=== PATIENT | male | born 1945 | race Caucasian/White ===

== ENCOUNTER 2017-05-13 14:01 | Inpatient (IN) ==
--- NOTE | 2017-05-13 14:31 | Emergency Department Note ---
Disposition Clinical Impression: Chest pain Qualifiers: Chest pain type: unspecified Qualified Code(s): R07.9 - Chest pain, unspecified Disposition: Admitted As Inpatient Condition: Fair [facility] Care Provider[facility] - Forms: ED Satisfaction Letter Time of Disposition: 16:13 Chest Pain HPI - General Chief Complaint: ED Chest Pain Stated Complaint: CP Time Seen by Provider: 05/13/17 14:04 Source: patient Mode of arrival: EMS Limitations: no limitations Vital Signs Reviewed: Yes Nursing Notes Reviewed: Yes - History of Present Illness HPI Narrative: 72-year-old male who presents with chest pain about 3 AM. States is similar to what he had prior to requiring 4 stents about 4 years ago. She was seen at the [place] he actually had given nitroglycerin with improvement troponin 2 is negative they were seen by cardiology there was concerned about unstable angina. Pt complaint: chest pain Onset (ago): Just [employer] Duration: constant Onset: during rest Pain Location: substernal, left chest Severity scale (1-10): 2 Quality: tightness, aching Improves with: nothing Worsens with: nothing Associated symptoms: Reports: nausea Treatments prior to arrival chest pain: none - Related Data Home Medications Medication Instructions Recorded Confirmed Cholecalciferol (Vitamin D3) 1,000 unit PO DAILY 10/13/15 10/13/15 [Vitamin D] Docusate [Colace] 100 mg PO BID PRN 10/13/15 10/13/15 Gabapentin [Neurontin] 300 mg PO TID 10/13/15 10/13/15 GlipiZIDE [Glucotrol] 10 mg PO DAILY 10/13/15 10/13/15 Lisinopril [Zestril] 10 mg PO DAILY 10/13/15 10/13/15 Metformin [Glucophage] 1,000 mg PO BID 10/13/15 10/13/15 Metoprolol XL (24 HR) Succ [Toprol 12.5 mg PO DAILY 10/13/15 10/13/15 XL] Prasugrel [Effient] 10 mg PO DAILY 10/13/15 10/13/15 Simvastatin [Zocor] 20 mg PO HS 10/13/15 10/13/15 Previous Rx's Medication Instructions Recorded OxyCODONE/APAP 5/325 [Percocet 1 each PO Q4HR PRN #30 tablet 10/13/15 5/325] Phenazopyridine HCl [Pyridium] 200 mg PO TIDAC #12 tab 10/13/15 Naproxen [Naprosyn] 500 mg PO BID #10 tablet 10/21/15 Ondansetron ODT [Zofran ODT] 4 mg SL Q4HR PRN #10 tab.rapdis 10/21/15 OxyCODONE/APAP 5/325 [Percocet 1 each PO Q6HR PRN #14 tablet 10/21/15 5/325 MG] Allergies Allergy/AdvReac Type Severity Reaction Status Date / Time No Known Allergies Allergy Verified 10/21/15 02:31 Constitutional: Denies: fever, chills, weakness, weight change Eyes: Denies: eye pain, eye discharge, vision change ENT ED: Denies: ear pain, throat pain, dental pain, hearing loss, epistaxis, congestion, dysphagia Cardiovascular: Reports: chest pain. Denies: palpitations, dyspnea on exertion , edema, syncope Respiratory: Denies: cough, dyspnea, wheezes, hemoptysis, stridor Gastrointestinal: Denies: abdominal pain, nausea, vomiting, diarrhea, constipation, hematemesis, melena, hematochezia Genitourinary: Denies: urgency, dysuria, frequency, hematuria Musculoskeletal: Denies: back pain, neck pain, arthralgia, myalgia Integumentary: Denies: rash, abrasion, lesions Neurological: Denies: headache, weakness, numbness, paresthesias, confusion, abnormal gait, vertigo Psychiatric: Denies: anxiety, depression, suicidal thoughts, homicidal thoughts , auditory hallucinations, visual hallucinations Endocrine: Denies: fatigue Hematological/Lymphatic: Denies: easy bleeding, easy bruising Allergic/Immunologic: Denies: facial swelling, urticaria Chest Pain PMH - Past Medical History Medical history: Reports: cancer, coronary artery disease, diabetes, hyperlipidemia, hypertension, kidney stones, myocardial infarction, other Surgical history: Reports: angioplasty/stent, appendectomy, other Psychiatric history: Reports: no psych history - Social History Smoking Status: Former smoker Alcohol use: Reports: occasionally Drug use: Reports: none Physical Exam - General Limitations: no limitations General appearance: alert, in no apparent distress Course - Reevaluation(s) Reevaluation #1: Troponin I 0.00 at 13:14, troponin 0. 00 at 08:10, AST 17, 8 LT 25, total bilirubin 0.5, ALP 81, calcium 9.5, total protein 7.5, albumin 3.8, mag 2.0, sodium 137, potassium 4.5, chloride 99, CO2 32, glucose 175, bun 14, creatinine 0.97, CBC 7.9, RBC 4.82, Hgb 14, HCT 43.5, MCV 90.2, MCH 29, MCHC 32, platelets 208, neutrophils 64.2, lymphocytes 26.3, monocytes 7.3, eosinophils 1.9, total 0.3, Time: 14:43 Reevaluation #2: 72-year-old with chest pain and was seen at the [place]. Patient had troponins done at the [place] that were negative, seen by cardiology who felt he had unstable angina. Will be admitted for further evaluation treatment. - Consultations Consultation #1: Discussed with Karma Francois, admit Time: 16:13 Vital Signs Temperature 97.9 F 05/13/17 14:02 Pulse Rate 67 05/13/17 14:02 Respiratory Rate 18 05/13/17 14:02 Blood Pressure 131/78 05/13/17 14:02 O2 Sat by Pulse Oximetry 97 05/13/17 14:02 Temperature 97.9 F 05/13/17 14:02 Pulse Rate 74 05/13/17 16:02 Respiratory Rate 18 05/13/17 16:02 Blood Pressure 119/80 05/13/17 16:02 O2 Sat by Pulse Oximetry 95 05/13/17 16:02 Oxygen Delivery Oxygen Delivery Nasal Cannula Heart Score - Score History: Moderately Suspicious EKG: Non Specific repolarisation Disturbance Age: Greater than 65 Risk Factors: Equal/Greater than 3 risk factor or history of atherosclerotic disease Troponin: 1-3x normal limit HEART Score Total: 7
[2017-05-13] MEDS ORDERED: Naloxone 0.4 MG/ML INJ IVP PRN (17:53)
[2017-05-13] MEDS ORDERED: Acetaminophen 325 MG TABLET PO PRN (17:53)
[2017-05-13] MEDS ORDERED: Dextrose Gel 15 GM PO PRN ×2 (17:57)
[2017-05-13] MEDS ORDERED: D5% in Water 1,000 ML IVC PRN (17:57)
[2017-05-13] MEDS ORDERED: *HR* Dextrose 50 % in Water (Syg) 50 ML SYRINGE IVP PRN (17:57)
[2017-05-13] MEDS ORDERED: Nitroglycerin 0.4 MG TAB.SUBL SL PRN (17:58)
--- NOTE | 2017-05-13 18:03 | Internal Med History&Physical ---
<Cedrick Langford - Last Filed: 05/13/17 20:22> Date of Encounter: 05/13/17 Internal Medicine - H&P: HPI History of present illness: Mr. Villegas is a 72 year old male Internal Medicine - H&P: Meds Cholecalciferol (Vitamin D3) [Vitamin D] 2,000 unit PO DAILY 10/13/15 [History] Docusate [Colace] 100 mg PO BID PRN 10/13/15 [History] Gabapentin [Neurontin] 300 mg PO BID 10/13/15 [History] Metformin [Glucophage] 1,000 mg PO BID 10/13/15 [History] Metoprolol XL (24 HR) Succ [Toprol XL] 37.5 mg PO DAILY 10/13/15 [History] Prasugrel [Effient] 10 mg PO DAILY 10/13/15 [History] Simvastatin [Zocor] 20 mg PO HS 10/13/15 [History] Cetirizine HCl [Zyrtec] 10 mg PO DAILY 05/13/17 [History] Fluticasone Propionate Nasal [Flonase] 50 mcg NS DAILY 05/13/17 [History] Hydrocortisone 2.5% CREAM [Cortaid] 1 appl RC BID PRN 05/13/17 [History] Isosorbide MONOnitrate (24 HR) [Imdur] 30 mg PO DAILY 05/13/17 [History] Ketoconazole 2% CRM [Nizoral Cream] 1 appl TP BID 05/13/17 [History] Lidocaine 4% CRM (LMX) [Lmx 4] 1 appl TP TID 05/13/17 [History] Lisinopril [Zestril] 5 mg PO DAILY 05/13/17 [History] Magnesium Oxide [Mag-Ox] 600 mg PO HS 05/13/17 [History] Multivitamin-Min/Iron/FA/Vit K [Multi-Day Plus Minerals Tablet] 1 each PO DAILY 05/13/17 [History] Naproxen Sodium [Aleve] 220 mg PO Q12H 05/13/17 [History] Nitroglycerin [Nitrostat] 0.4 mg SL Q5M PRN 05/13/17 [History] glipiZIDE [Glipizide] 10 mg PO BID 05/13/17 [History] metFORMIN [Glucophage] 500 mg PO 1200 05/13/17 [History] Allergies No Known Allergies Allergy (Verified 10/21/15 02:31) All Systems PM: A 10-system review of systems was performed and is negative for pertinent findings except as documented above in the HPI. - Constitutional Vitals: Temp Pulse Resp BP Pulse Ox 97.9 F 68 15 118/75 93 05/13/17 19:43 05/13/17 19:43 05/13/17 19:43 05/13/17 19:43 05/13/17 19:43 Internal Med - H&P Results - Labs Labs: Cardiac Enzymes 05/13/17 Range/Units 18:11 Troponin I 0.00 (0-0.03) ng/mL - Attending Attestation I examined this patient and my medical decision-making was reviewed with the Advanced Practice Nurse. I agree with the documented findings, disposition and treatment plan as described except to the extent set forth below. Patient was transferred from the [place] for evaluation of chest pain. He reports that he is now chest pain-free. On exam he is in no acute distress. Heart is regular with normal S1 and S2 and no murmurs. Lungs are clear to auscultation bilaterally. EKG was personally reviewed shows normal sinus rhythm [address] or T- wave changes. Plan: We will place the patient on telemetry. Trend troponin. Consult cardiology in the morning. Nothing by mouth after midnight <Agatha Fulton - Last Filed: 05/13/17 21:09> Date of Encounter: 05/13/17 Time of Encounter: 18:02 Assessment and Plan (1) Chest pain Current visit: Yes Status: Acute 1 patient was awakened with midsternalhest pain radiating to left arm it was relieved with nitroglycerin he does have a past history of coronary artery disease hypertension hyperlipidemia. Troponins are 0 continue to cycle 2 continuous cardiac monitoring 3 continue with aspirin and Plavix statin we will hold beta tiyn in the morning , for possible cardiac stress and resume once completed 4 we will consult cardiology 5 in p.m. after midnight for any further testing 6 nitroglycerin as needed for chest pain Qualifiers: Chest pain type: unspecified Qualified Code(s): R07.9 - Chest pain, unspecified (2) Hypertension Current visit: Yes Status: Acute 1 we will continue with home medication Qualifiers: Hypertension type: essential hypertension Qualified Code(s): I10 - Essential (primary) hypertension (3) Diabetes mellitus Current visit: Yes Status: Acute 1 hold oral antidiabetic Accu-Cheks before meals at bedtime sliding scale insulin Qualifiers: Diabetes mellitus type: type 2 Diabetes mellitus complication status: without complication Diabetes mellitus longterm insulin use: without longterm use Qualified Code(s): E11.9 - Type 2 diabetes mellitus without complications (4) DVT prophylaxis Current visit: Yes Status: Acute 1 [facility] Internal Medicine - H&P: HPI Chief complaint: CP Admitted From: Hospital to Hospital Transfer Plans for Post Hospital Care: Home History of present illness: Mr. Villegas is a 72 year old male hospital history of coronary artery disease with 4 stents placed proximal 4 years ago diabetes hyperlipidemia hypertension. According to patient he was awakened approximately 3 AM with midsternal chest pressure which she states was squeezing 10/10 pain radiated to his left arm he did become short of breath and nauseated. He did take a nitroglycerin which relieved his pain. He went back to sleep an hour later he was awakened again with the same symptoms again he took nitroglycerin which reduced his pain. He reported to the [place] [facility] for [place]. The [place] he was given another nitroglycerin which completely relieved his pain first 2 sets of troponins were negative at that [place] EKG was with no ST-T wave abnormalities. Due to the patient 's past cardiac history and unavailable cardiology at the [place] the patient was transferred to [place] for further workup and evaluation. Presently patient denies any chest pain he is sinus rhythm on monitor lung sounds are clear heart sounds S1 and S2 regular with no rubs clicks gallops or murmurs noted no lower extremity edema. Prior to this incident he was doing well and in his normal state of health. He states his last cardiac stress test was 4 years ago and during the stress test he states he had a "heart attack"and had 4 stents placed. Presently patient is hemodynamically stable I reviewed this case with who agrees with the plan. Past Med Surg Social Fam HX - Past Medical History Medical history: coronary artery disease, diabetes, hyperlipidemia, hypertension , kidney stones, myocardial infarction, other Psychiatric history: no psych history - Past Surgical History Surgical History: angioplasty/stent, appendectomy, other - Social History Smoking Status: Former smoker Smokeless Tobacco Status: No Alcohol use: occasionally Drug use: none - Additional Family History Additional family history: History reviewed and noncontributory All Systems PM: A 10-system review of systems was performed and is negative for pertinent findings except as documented above in the HPI. - Constitutional Constitutional: no chills, no fever(s), no night sweats - EENT Eyes: no change in vision, no discharge, no pain, no photophobia Nose, mouth and throat: no dysphagia, no nasal discharge, no neck pain, no sore throat - Cardiovascular Cardiovascular ROS IM: no chest pain, no diaphoresis, no dyspnea, no lightheadedness, no palpitations, no syncope - Respiratory Respiratory: no cough, no dyspnea, no wheezing, no excessive phlegm production - Gastrointestinal Gastrointestinal: no abdominal pain, no diarrhea, no hematemesis, no hematochezia, no melena, no nausea, no vomiting - Musculoskeletal Musculoskeletal ROS IM: no numbness, no tingling - Integumentary Integumentary IM: no rash, no unusual bruising - Neurological Neurological ROS: no confusion, no convulsions, no focal weakness, no numbness, no tingling, no tremor(s) - Hematologic/Lymphatic Hematologic/Lymphatic: no easy bruising - Constitutional Vitals: Temp Pulse Resp BP Pulse Ox 97.9 F 82 14 91/68 91 05/13/17 17:32 05/13/17 17:32 05/13/17 17:32 05/13/17 17:32 05/13/17 17:32 General appearance: Present: A&O X 3, answers questions appropriately - Head Head exam: Present: atraumatic, normocephalic - Eye Eye exam: Present: PERRL, conjuntiva pink, sclera anicteric Pupils: Present: PERRL - Neck Neck exam general surgery: Present: supple, trachea midline. Absent: lymphadenopathy - Respiratory Respiratory exam: Present: CTAB. Absent: accessory muscle use, rales, rhonchi, wheezes - Cardiovascular Cardiovascular exam: Present: RRR, +S1, +S2. Absent: diastolic murmur, gallop, rubs, systolic murmur - GI/Abdominal GI/Abdominal exam: Present: normal bowel sounds, soft, no peritoneal signs. Absent: distended, tenderness - Extremities Exam Extremities exam: Present: warm, radial pulses palpable and symetrical. Absent : calf tenderness, cyanotic, pedal edema - Neurological Exam Neurological exam: Present: CN II-XII intact, oriented X3, no focal deficits. Absent: pronater drift, facial droop, speech deficit - Skin Skin exam: Present: dry, intact Internal Med - H&P Results - Labs Labs: Chemistry sodium 137 potassium 4.5 chloride 99, and Axid 32 BUN 14 creatinine 0.97 glucose 175 CBC WBC 7.9 hemoglobin 14 hematocrit 43.5 platelets 208 - EKG Data EKG shows normal: sinus rhythm - EKG Data Prior EKG available for review: no
[2017-05-13] MEDS ORDERED: Insulin LISPRO 300 UNITS/3 ML VIAL SQ SCH (21:00)
[2017-05-13] MEDS: Gabapentin 300 MG CAPSULE PO SCH (21:07)
[2017-05-14 05:08] LABS: Basophils % 0.5 %; Eosinophils # 0.2 K/mcL (0.0-0.6); Eosinophils % 2.3 %; Hematocrit 42.6 % (37.5-50.1); Hemoglobin 13.8 g/dL (12.9-16.9); Immature Granulocytes % 0.2 % (0-4); Lymphocytes # 1.7 K/mcL (0.6-4.6); Lymphocytes % 26.4 %; Mean Corpuscular HGB Conc 32.4 g/dL (31.6-35.5); Mean Corpuscular Hemoglobin 28.1 pg (28.0-33.3); Mean Corpuscular Volume 86.8 fL (83.0-100.0); Mean Platelet Volume 8.9 fL (9.4-12.4); Monocytes # 0.6 K/mcL (0.0-1.3); Monocytes % 9.6 %; Platelet Count 173 K/mcL (140-400); Red Blood Count 4.91 M/mcL (4.19-5.50); Red Cell Distribution Width 13.7 % (11.5-14.5)
[2017-05-14 05:24] LABS: BUN/Creatinine Ratio 16 (6-26); Blood Urea Nitrogen 13 mg/dL (8-26); Calcium 9.4 mg/dL (8.6-10.8); Carbon Dioxide 24 mEq/L (19-29); Chloride 104 mEq/L (98-109); Glucose 185 mg/dL (70-99); Magnesium 1.6 mg/dL (1.6-2.6); Osmolality,Calculated 289 (280-300); Potassium 4.6 mEq/L (3.5-4.5); Sodium 137 mEq/L (136-145); eGFR For African Americans > 60 (> 60); eGFR For Non-African Americans > 60 (> 60)
[2017-05-14] MEDS ORDERED: *HR* Enoxaparin 40 MG/0.4 ML SYRINGE SQ SCH (07:00)
[2017-05-14 08:11] VITALS: BP 118/74
[2017-05-14] MEDS ORDERED: Multivit/Ca/Min/Fe/FA 1 TAB TABLET PO SCH (09:00)
[2017-05-14] MEDS ORDERED: Loratadine 10 MG TABLET PO SCH (09:00)
[2017-05-14] MEDS ORDERED: Cholecalciferol (D-3) 1,000 UNIT TABLET PO SCH (09:00)
[2017-05-14] MEDS ORDERED: Isosorbide MONOnitrate (24 HR) 30 MG TAB.ER.24H PO SCH (09:00)
[2017-05-14] MEDS: Insulin LISPRO 300 UNITS/3 ML VIAL SQ SCH ×2 (09:31→14:00)
--- NOTE | 2017-05-14 09:43 | Cardiology Consult Note ---
Date of Encounter: 05/14/17 Time of Encounter: 09:20 Assessment and Plan (1) Chest pain Current Visit: Yes Status: Acute Presents with typical chest pain symptoms; relieved with NTG tabs. Trop[facility] negative [facility] ([facility] negative [facility]). No ischemic ECG changes. Pain free upon exam. Given symptoms and hx of CAD, recommend proceeding with Pharmacologic nuclear stress test--patient is agreeable. Further recommendations to follow. Qualifiers: Chest pain type: chest pain due to myocardial ischemia Ischemic chest pain type: stable angina pectoris Qualified Code(s): I20.8 - Other forms of angina pectoris (2) CAD (coronary artery disease) Current Visit: Yes Status: Chronic Hx of CAD s/p 4 stents. Most recent PCI 01/2012. Asa, statin, betablocker, and effient. Plan as above. Qualifiers: Coronary Disease-Associated Artery/Lesion type: [place] artery [place] vs. transplanted heart: [place] heart Associated angina: with stable angina Qualified Code(s): I25.118 - Atherosclerotic heart disease of [place] coronary artery with other forms of angina pectoris (3) Hypertension Current Visit: Yes Status: Chronic Controlled, continue current CV medications. Qualifiers: Hypertension type: essential hypertension Qualified Code(s): I10 - Essential (primary) hypertension Discussion w patient/family: The assessment and plan as outlined above was discussed with the patient and/or family members who expressed understanding and agreement. All questions were answered. Thank you for involving us in the care of your patient. Please call with any questions. The patient will be discussed and reviewed with Dr. Frank Vaca; changes to be made accordingly. History of Present Illness Consult date: 05/14/17 Requesting physician: Cedrick Langford Consult reason: Chest pain Chief complaint: Chest pain History of present illness: Mr. Villegas is a 72 year old male with PMH significant for CAD s/p PCI, DMII, neuropathy, and HTN who presented to the [place] with 1-2 day history of substernal chest discomfort with radiation down left arm. He reports intermittent left-arm tingling for the past week. Symptoms worsen with exertion/stress and improve with rest and NTG tabs. Upon arrival to [place], initial troponin was negative. No acute ischemic ECG changes were noted. He was the transferred to [facility] for further evaluation. Prior CV testing: [facility] 02/18/12: Patent pre-existing stent in the proximal to mid left anterior descending artery. Successful PTCA of the patent pre-existing stent in the proximal to mid first obtuse marginal artey, PCI of the 70% stenosis in the mid right coronary artery & 70% stenosis in the proximal right coronary artery. Pharmacologic nuclear 02/03/13: Perfusion imaging was negative for ischemia or infarct, Pharmacologic ECG was negative for ischemia at the level of heart rate achieved, no chest pain with stress, Normal hemodynamic response TTE 02/03/13: LVEF 60-65%, mild diastolic dysfunction of the left ventricle, Normal right ventricular size and function, No significant valvular dysfunction identified, There is no pulmonary hypertension, All wall segments showed normal motion. Past Med Surg Social Fam HX - Past Medical History Attestation: Yes The following information was validated with the patient. Source: patient, old records reviewed Medical history: coronary artery disease, diabetes, hyperlipidemia, hypertension , kidney stones, myocardial infarction Psychiatric history: no psych history - Past Surgical History Surgical History: angioplasty/stent, appendectomy, other - Social History Smoking Status: Former smoker Smokeless Tobacco Status: No Alcohol use: occasionally Drug use: none Medications and Allergies Cholecalciferol (Vitamin D3) [Vitamin D] 2,000 unit PO DAILY 10/13/15 [History] Docusate [Colace] 100 mg PO BID PRN 10/13/15 [History] Gabapentin [Neurontin] 300 mg PO BID 10/13/15 [History] Metformin [Glucophage] 1,000 mg PO BID 10/13/15 [History] Metoprolol XL (24 HR) Succ [Toprol XL] 37.5 mg PO DAILY 10/13/15 [History] Prasugrel [Effient] 10 mg PO DAILY 10/13/15 [History] Simvastatin [Zocor] 20 mg PO HS 10/13/15 [History] Cetirizine HCl [Zyrtec] 10 mg PO DAILY 05/13/17 [History] Fluticasone Propionate Nasal [Flonase] 50 mcg NS DAILY 05/13/17 [History] Hydrocortisone 2.5% CREAM [Cortaid] 1 appl RC BID PRN 05/13/17 [History] Isosorbide MONOnitrate (24 HR) [Imdur] 30 mg PO DAILY 05/13/17 [History] Ketoconazole 2% CRM [Nizoral Cream] 1 appl TP BID 05/13/17 [History] Lidocaine 4% CRM (LMX) [Lmx 4] 1 appl TP TID 05/13/17 [History] Lisinopril [Zestril] 5 mg PO DAILY 05/13/17 [History] Magnesium Oxide [Mag-Ox] 600 mg PO HS 05/13/17 [History] Multivitamin-Min/Iron/FA/Vit K [Multi-Day Plus Minerals Tablet] 1 each PO DAILY 05/13/17 [History] Naproxen Sodium [Aleve] 220 mg PO Q12H 05/13/17 [History] Nitroglycerin [Nitrostat] 0.4 mg SL Q5M PRN 05/13/17 [History] glipiZIDE [Glipizide] 10 mg PO BID 05/13/17 [History] metFORMIN [Glucophage] 500 mg PO 1200 05/13/17 [History] Allergies No Known Allergies Allergy (Verified 10/21/15 02:31) All Systems Review: A 10-system review of systems was performed and is negative for pertinent findings except as documented above in the HPI. - Cardiovascular Cardiovascular: as per HPI Physical Examination Vital Signs, Last 4 Hours Temp Pulse Resp BP Pulse Ox 05/14/17 08:10 98.1 F 72 16 118/74 92 General: Conversant, No Apparent Distress HEENT: Atraumatic, Normocephaly, Mucus Membranes Moist Neck: No JVD, Normal carotid pulses Cardiac: Reg Rate and Rhythm, Normal S1 and S2, No Murmur Lungs: Normal Breath Sounds, No Wheeze, Rales, Rhonchi Neuro: Alert and responsive, No focal deficits noted Abdomen: Soft, Non-Tender Skin: No rashes noted on visualized skin Musculoskeletal: No Chest Wall Tenderness Extremities: No Clubbing, No Cyanosis, No Edema, Normal Pulses Results 05/14/17 04:33 05/14/17 04:33 Lab Results 05/13/17 05/14/17 05/14/17 18:11 04:33 04:33 WBC 6.6 Hgb 13.8 Hct 42.6 Plt Count 173 Sodium 137 Potassium 4.6 H Chloride 104 Carbon Dioxide 24 BUN 13 Creatinine 0.80 Glucose 185 H Calcium 9.4 Magnesium 1.6 Troponin I 0.00 05/14/17 08:34 WBC Hgb Hct Plt Count Sodium Potassium Chloride Carbon Dioxide BUN Creatinine Glucose Calcium Magnesium Troponin I 0.01 Active Medications Acetaminophen (Tylenol) 650 mg PO Q6HR PRN PRN Reason: Mild Pain (1-3) Stop: 11/12/17 17:54 Dextrose/Water (Dextrose 50% (Syg)) 25 ml IVP AD PRN PRN Reason: Hypoglycemia Stop: 11/12/17 17:58 Docusate Sodium (Colace) 100 mg PO BID PRN; Protocol PRN Reason: Constipation Stop: 11/12/17 17:59 Enoxaparin Sodium (Lovenox) 40 mg SQ 0700 BRANDO PRN Reason: Protocol Stop: 11/13/17 07:01 Last Admin: 05/14/17 06:15 Dose: 40 mg Gabapentin (Neurontin) 300 mg PO BID BRANDO Stop: 11/12/17 21:01 Last Admin: 05/13/17 21:07 Dose: 300 mg Dextrose (Dextrose 5%) 1,000 mls @ 100 mls/hr IVC .Q10H PRN PRN Reason: HYPOGLYCEMIA Stop: 11/12/17 17:58 Insulin Human Lispro (Humalog) 0 units SQ HS BRANDO PRN Reason: Protocol Stop: 11/12/17 21:01 Last Admin: 05/13/17 21:08 Dose: Not Given Insulin Human Lispro (Humalog) 0 units SQ TIDAC BRANDO PRN Reason: Protocol Stop: 11/13/17 07:31 Last Admin: 05/14/17 09:31 Dose: Not Given Isosorbide Mononitrate (Imdur) 30 mg PO DAILY [facility] Stop: 11/13/17 09:01 Lisinopril (Zestril) 5 mg PO DAILY BRANDO PRN Reason: Protocol Stop: 11/13/17 09:01 Loratadine (Claritin) 10 mg PO DAILY [facility] Stop: 11/13/17 09:01 Multivitamins/Calcium (Thera M Plus) 1 tab PO DAILY [facility] Stop: 11/13/17 09:01 Naloxone HCl (Narcan) 0.4 mg IVP Q2MIN PRN PRN Reason: Opioid Reversal Stop: 11/12/17 17:54 Naproxen (Naprosyn) 250 mg PO Q12H BRANDO Stop: 11/12/17 18:01 Last Admin: 05/14/17 06:15 Dose: 250 mg Nitroglycerin (Nitroglycerin) 0.4 mg SL Q5M PRN PRN Reason: Chest Pain Stop: 11/12/17 17:59 Prasugrel (Effient) 10 mg PO DAILY [facility] Stop: 11/13/17 09:01 Simvastatin (Zocor) 20 mg PO HS BRANDO PRN Reason: Protocol Stop: 11/12/17 21:01 Last Admin: 05/13/17 21:07 Dose: 20 mg Vitamin D (Vitamin D) 2,000 unit PO DAILY [facility] Stop: 11/13/17 09:01 - Imaging and Cardiology Echo: pending, report reviewed Cardiac cath: report reviewed Other Results: 12 hour tele: avg HR=70 SR. No significant event noted. - EKG Interpretation EKG results cardiology: personally reviewed Consult Discharge Plan - Plan [facility]errals: [facility] [Primary Care Provider] -
--- NOTE | 2017-05-14 10:40 | Electrocardiograph Report ---
[address] [address] Test Date: 2017-05-13 Pat Name: Nilo Villegas Department: 104 Room: 3B23 Gender: M [employer]: [facility] : 1945 Requested By: Ryan Chaparro Order Number: [id number] Reading MD: Frank Vaca Measurements Intervals [place] Rate: 66 P: 72 PA: 159 QRS: 58 QRSD: 82 T: 59 QT: 383 QTc: 397 Interpretive Statements SINUS RHYTHM Electronically Signed On 05-14-2017 10:39:02 EDT by Frank Vaca
[2017-05-14] MEDS ORDERED: Regadenoson 0.4 MG/5 ML SYRINGE IVP ONE (10:42)
--- NOTE | 2017-05-14 13:04 | Nuclear Medicine Stress Report ---
Regadenoson Nuclear Stress Name: Nilo Villegas Date of Study: 05/14/2017 Date: 1945 Ht: 70.0 in Medical Record#: [id number] Age: 72 Wt: 210.0 lb Gender: Male Order #: [id number] Location: [facility] Room: [facility] Supervising Provider: Huan Joseph CNP Reading Physician: Lois Singh DO Ordering Physician: Wendy Jim CNP Primary Care Physician: [facility] Stress Technologist: Solo Stanton, ORTHOTIC/PROSTHETIC PRACTITIONER, CPFT Video Technician: Marko Montano Indications: Chest Pain Impression: Perfusion imaging was negative for ischemia or infarct. Pharmacologic ECG was negative for ischemia at the level of heart rate achieved. Gated EF = 66%. History: Hypertension Diabetes Hypercholesteremia Prior PCI Stress Test Summary: Stress Test Type: Pharmacologic Regadenoson 0.4mg/5ml given IV Baseline Information: Initial Heart Rate: 73 Blood Pressure: 114/76 Stress Information: Stress Time: 4 min 00 sec Test Terminated Due to (primary): As per protocol Maximum Blood Pressure: 110/68 Maximum Heart Rate: 97 Percent Maximum Heart Rate Achieved: 65 Double Product: [id number] METS Reached: 1 Symptoms: Shortness of breath Nuclear Summary: SPECT myocardial perfusion imaging using Tc99m Sestamibi given intravenously was performed at rest and following cardiac stress testing. The resting images were obtained following initial dose of 11.2 mCi. Following stress an additional dose of 32.2 mCi was given at peak exercise or 30 seconds post regadenoson infusion. Medication Given: Time Medication Dose Units Route Findings: Stress Note * Resting ECG demonstrated normal sinus rhythm. * Pharmacologic stress ECG is negative for ischemia at level of heart rate achieved. * No arrhythmias were noted during stress. * Patient had no chest pain during stress. Hemodynamic responses * Normal hemodynamic responses to pharmacologic stress. Study Quality * Study quality was fair. Gated EF % * Gated EF = 66%. Left Ventricle * The left ventricle is not dilated. TID * No evidence of transient ischemic dilatation. Lung Uptake * There is no evidence of increase lung uptake. NORMALS * Normal wall motion. PERFUSION * There is a small size, mild intensity fixed perfusion defect involving the apex and apical inferior barrera. Wall motion is normal in this area. Findings represent artifact. * Other segments demonstrate normal rest and stress perfusion. Updated by Lois Singh on 05/14/2017 12:58:41 PM electronically signed on 05/14/2017 12:59:28 PM with status of Final
--- NOTE | 2017-05-14 13:39 | Event Note ---
Date of Encounter: 05/14/17 Time of Encounter: 13:30 - Cardiology Event Note Nuclear stress test negative for ischemia, TTE shows preserved LVEF with normal wall motion. Agree with addition of long-acting nitrate to medication regimen. Continue home CV medications including asa, statin, betablocker, and effient. No further inpateint recommendations, follow-up with [facility] as outpatient. Will coordinate appt. The patient was discussed and reviewed with Dr. Frank Vaca who agrees with plan as stated above.
[2017-05-14] MEDS: Gabapentin 300 MG CAPSULE PO SCH (14:29)
--- NOTE | 2017-05-14 15:24 | Discharge Summary ---
Date of Encounter: 05/14/17 Time of Encounter: 13:30 - Discharge Diagnosis (1) Chest pain Priority: Primary Status: Ruled-out Comments: Patient endorsed chest point tenderness on day of discharge but denied overt pain. Stress test negative. Troponins negative. ACS ruled out. Given his history and relief with Nitro, will increase his Imdur per Cardiology recommendations. Qualifiers: Chest pain type: chest pain due to myocardial ischemia Ischemic chest pain type: stable angina pectoris Qualified Code(s): I20.8 - Other forms of angina pectoris (2) Stable angina Priority: Primary Status: Suspected (3) Hypertension Priority: Secondary Status: Chronic Comments: Controlled, follow-up outpatient Qualifiers: Hypertension type: essential hypertension Qualified Code(s): I10 - Essential (primary) hypertension (4) Diabetes mellitus Priority: Secondary Status: Chronic Comments: No recent A1c, appears moderately controlled at home, follow-up outpatient. Qualifiers: Diabetes mellitus type: type 2 Diabetes mellitus complication status: without complication Diabetes mellitus jail insulin use: without jail use Qualified Code(s): E11.9 - Type 2 diabetes mellitus without complications (5) DVT prophylaxis Priority: Primary Status: Acute Comments: Subcutaneous Lovenox while admitted (6) CAD (coronary artery disease) Priority: Secondary Status: Chronic Qualifiers: Coronary Disease-Associated Artery/Lesion type: [place] artery [place] vs. transplanted heart: [place] heart Associated angina: with stable angina Qualified Code(s): I25.118 - Atherosclerotic heart disease of [place] coronary artery with other forms of angina pectoris - Discharge Medications Prescriptions: Isosorbide MONOnitrate (24 HR) [Imdur] 60 mg PO DAILY #30 tab.er.24h Home Medications: Cholecalciferol (Vitamin D3) [Vitamin D] 2,000 unit PO DAILY 10/13/15 [History] Docusate [Colace] 100 mg PO BID PRN 10/13/15 [History] Gabapentin [Neurontin] 300 mg PO BID 10/13/15 [History] Metformin [Glucophage] 1,000 mg PO BID 10/13/15 [History] Metoprolol XL (24 HR) Succ [Toprol XL] 37.5 mg PO DAILY 10/13/15 [History] Prasugrel [Effient] 10 mg PO DAILY 10/13/15 [History] Simvastatin [Zocor] 20 mg PO HS 10/13/15 [History] Cetirizine HCl [Zyrtec] 10 mg PO DAILY 05/13/17 [History] Fluticasone Propionate Nasal [Flonase] 50 mcg NS DAILY 05/13/17 [History] Hydrocortisone 2.5% CREAM [Cortaid] 1 appl RC BID PRN 05/13/17 [History] Ketoconazole 2% CRM [Nizoral Cream] 1 appl TP BID 05/13/17 [History] Lidocaine 4% CRM (LMX) [Lmx 4] 1 appl TP TID 05/13/17 [History] Lisinopril [Zestril] 5 mg PO DAILY 05/13/17 [History] Magnesium Oxide [Mag-Ox] 600 mg PO HS 05/13/17 [History] Multivitamin-Min/Iron/FA/Vit K [Multi-Day Plus Minerals Tablet] 1 each PO DAILY 05/13/17 [History] Naproxen Sodium [Aleve] 220 mg PO Q12H 05/13/17 [History] Nitroglycerin [Nitrostat] 0.4 mg SL Q5M PRN 05/13/17 [History] glipiZIDE [Glipizide] 10 mg PO BID 05/13/17 [History] metFORMIN [Glucophage] 500 mg PO 1200 05/13/17 [History] Isosorbide MONOnitrate (24 HR) [Imdur] 60 mg PO DAILY #30 tab.er.24h 05/14/17 [ Rx] Allergies/Adverse Reactions: Allergies No Known Allergies Allergy (Verified 10/21/15 02:31) Procedures/tests Complete & Pending: Procedures Performed prior 72 hours Category Date Time Status NM kush perf SPECT multi [NM] Routine Exams 05/14/17 09:41 Taken EV echocardiogram Routine Y 05/13/17 17:55 Completed SP pharm nuclear stress Routine Y 05/14/17 09:41 Completed Date of admission: 05/13/17 16:56 [facility] care physician: [facility] Consults: 05/13/17 19:28 Consult to Cardiology [CONS] Routine Comment: Consulting Provider: Cardiology [facility] Reason for Consult: CP- Hx of CAD stents Time Notified: 19:29 Call Completed: No Discharging clinician: Wendy Jim Anticipated date of discharge: 05/14/17 - Patient Status Disposition: Home, Self-Care Condition: Fair Functional capacity at discharge: independent ambulation Overall status at discharge: patient is back to baseline - Discharge Instructions Follow Up With: [facility],PCP [Primary Care Provider] - 05/21/17 9:30 am Additional Instructions: Follow-up with primary care provider as scheduled - Diet and Activity Activity: increase activity as tolerated Diet: diabetic diet, low fat, low cholesterol, low salt diet Hospital course: Mr. Villegas is a 72 year old male with past medical history of CAD status post stent 4, hyperlipidemia, hypertension, diabetes. Patient stating he woke up in the middle of the night with midsternally located chest pressure that he felt was squeezing and with 10 out of 10 pain that radiated to his left arm. Patient also endorsed shortness of breath and nausea with this episode. He took nitroglycerin which relieved his pain. He then went back to sleep however he and hour later, he was awakened again with the same symptoms and again he took another nitroglycerin which reduced his pain. He presented to the [facility] and was subsequently sent to [facility]. He was admitted to the hospitalist service for further evaluation and management. First 2 troponins were negative at the [facility], repeat third troponin at [facility] negative as well. Upon presentation to [facility], patient's chest pain had subsided. Cardiology was brought on board who proceeded with a stress test and an echocardiogram. Echocardiogram unremarkable with ejection fraction of 55% and mild diastolic dysfunction. Patient euvolemic on examination throughout this admission. Nuclear stress test negative for ischemia or infarct and revealed an ejection fraction of 66%. Cardiology recommended increasing his Imdur and cleared him for followup outpatient with the [facility]. He was discharged home in stable condition with close outpatient followup recommended. Echocardiogram impressions: LVEF 55%. Normal left ventricle size and systolic function. There is evidence of mild diastolic dysfunction of the left ventricle. Normal right ventricular size and function. No significant valvular dysfunction. No pulmonary hypertension. Regadenosen nuclear stress impression: Perfusion imaging was negative for ischemia or infarct. Pharmacologic ECG was negative for ischemia at level of heart rate achieved. Gated ejection fraction equals 66%. - Time Spent with Patient Total time spent providing and/or coordinating discharge services: - Constitutional Vitals: Temp Pulse Resp BP Pulse Ox 98.1 F 72 16 118/74 92 05/14/17 08:10 05/14/17 08:10 05/14/17 08:10 05/14/17 08:10 05/14/17 08:10 General appearance: Present: A&O X 3, pleasant, no acute distress, answers questions appropriately - Head Head exam: Present: atraumatic, normocephalic - Eye Eye exam: Present: PERRL, conjuntiva pink, sclera anicteric Pupils: Present: PERRL - Neck Neck exam general surgery: Present: supple, trachea midline. Absent: lymphadenopathy - Respiratory Respiratory exam: Present: CTAB. Absent: accessory muscle use, rales, respiratory distress, rhonchi, wheezes - Cardiovascular Cardiovascular exam: Present: RRR, +S1, +S2. Absent: diastolic murmur, gallop, rubs, systolic murmur - GI/Abdominal GI/Abdominal exam: Present: normal bowel sounds, soft, no peritoneal signs. Absent: distended, tenderness - Extremities Exam Extremities exam: Present: warm, radial pulses palpable and symetrical. Absent : calf tenderness, cyanotic, pedal edema - Neurological Exam Neurological exam: Present: alert, CN II-XII intact, normal gait, oriented X3, no focal deficits, strengths equal and symetr throughout. Absent: pronater drift, facial droop, speech deficit - Skin Skin exam: Present: dry, intact, normal color, warm
== END 2017-05-14 16:15 | disposition home or self-care (01) | DRG 303 ==
LOC: EMEROO 14:01 → 3BNU 14:01 → OBSVTOIN 16:56 → 3BNU 17:26
PROVIDERS: ADMIT Nurse Practitioner Family; ATTEND Nurse Practitioner Family

== ENCOUNTER 2022-06-12 17:47 | Observation (INO) ==
[2022-06-12] MEDS ORDERED: 0.9 % Sodium Chloride 1,000 ML IVC ONE (18:41)
[2022-06-12 19:53] LABS: Bilirubin,Urine Negative (Negative); Blood,Urine Negative (Negative); Clarity,Urine Clear (Clear); Color,Urine Yellow (Yellow); Glucose,Urine (UA) Normal (Normal); Hyaline Casts,Urine Many per lpf (None Seen); Ketones,Urine Negative (Negative); Leukocyte Esterase,Urine Negative (Negative); Mucus,Urine Few per lpf (None-Few); Nitrite,Urine Negative (Negative); PH,Urine 5.5 pH Units (5.0-8.0); Protein,Urine 30 mg/dL (Neg-Trace); RBC,Urine 15-30 per hpf (0-3); Specific Gravity,Urine 1.024 (1.010-1.025); Urobilinogen,Urine Normal (Normal); WBC,Urine 0-3 per hpf (0-3)
[2022-06-12 20:22] LABS: Basophils % 0.4 %; Eosinophils # 0.1 K/mcL (0.0-0.6); Eosinophils % 1.8 %; Hematocrit 30.2 % (37.5-50.1); Hemoglobin 9.2 g/dL (12.9-16.9); Immature Granulocytes % 0.4 % (0-4); Lymphocytes # 1.5 K/mcL (0.6-4.6); Lymphocytes % 26.2 %; Mean Corpuscular HGB Conc 30.5 g/dL (31.6-35.5); Mean Corpuscular Hemoglobin 28.5 pg (28.0-33.3); Mean Corpuscular Volume 93.5 fL (83.0-100.0); Mean Platelet Volume 8.5 fL (9.4-12.4); Monocytes # 0.5 K/mcL (0.0-1.3); Monocytes % 9.7 %; Neutrophils # 3.4 K/mcL (1.6-8.9); Platelet Count 216 K/mcL (140-400); Red Blood Count 3.23 M/mcL (4.19-5.50); Red Cell Distribution Width 14.7 % (11.5-14.5); Segmented Neutrophils % 61.5 %; White Blood Count 5.5 K/mcL (4.3-11.1)
[2022-06-12 20:34] LABS: INR 1.1; Prothrombin Time 12.3 Seconds (9.4-12.1)
[2022-06-12 20:37] LABS: Activated Partial Thrombo Time 34.8 Seconds (26.0-36.0)
[2022-06-12 20:46] LABS: Alanine Aminotransferase 23 Units/L (7-52); Albumin 3.3 g/dL (3.5-5.7); Albumin/Globulin Ratio 1.1 (1.1-2.2); Alkaline Phosphatase 85 Units/L (34-104); Aspartate Amino Transferase 22 Units/L (13-39); BUN/Creatinine Ratio 10 (6-26); Bilirubin,Total 0.2 mg/dL (0.3-1.0); Blood Urea Nitrogen 22 mg/dL (8-23); Calcium 8.9 mg/dL (8.6-10.3); Carbon Dioxide 27 mEq/L (23-29); Chloride 105 mEq/L (98-107); Creatine Kinase 30 Units/L (30-223); Globulin 2.9 g/dL (2.4-3.5); Glucose 107 mg/dL (70-105); Osmolality,Calculated 288 (280-300); Potassium 5.6 mEq/L (3.5-5.1); Sodium 137 mEq/L (136-145); Total Protein 6.2 g/dL (6.4-8.9); Troponin I < 0.03 ng/mL (< 0.04); eGFR For African Americans 36 (> 60); eGFR For Non-African Americans 30 (> 60)
[2022-06-12] MEDS ORDERED: Naloxone 0.4 MG/ML INJ IVP PRN (21:36)
[2022-06-12] MEDS ORDERED: Ondansetron 4 MG/2 ML VIAL IVP PRN (21:36)
[2022-06-12] MEDS ORDERED: Calcium Gluconate 1gm/50mL 1 GM/50 ML BAG IVPB ONE (21:40)
[2022-06-12] MEDS ORDERED: D5% in Water 1,000 ML IVC PRN (21:57)
[2022-06-12] MEDS ORDERED: Dextrose Gel 15 GM/37.5 ML TUBE PO PRN ×2 (21:57)
[2022-06-12] MEDS: 0.9 % Sodium Chloride 1,000 ML IVC SCH (22:15)
[2022-06-12] MEDS: Acetaminophen 325 MG TABLET PO PRN (22:48)
[2022-06-13] MEDS ORDERED: Lidocaine 4% CREAM (LMX) 5 GM TP PRN (02:39)
[2022-06-13] MEDS ORDERED: *HR* OxyCODONE Immed Rel 5 MG TABLET PO PRN (02:39)
[2022-06-13 04:44] LABS: Basophils % 0.4 %; Eosinophils # 0.1 K/mcL (0.0-0.6); Eosinophils % 3.1 %; Hematocrit 30.6 % (37.5-50.1); Hemoglobin 9.4 g/dL (12.9-16.9); Immature Granulocytes % 0.4 % (0-4); Lymphocytes # 1.3 K/mcL (0.6-4.6); Lymphocytes % 28.1 %; Mean Corpuscular HGB Conc 30.7 g/dL (31.6-35.5); Mean Corpuscular Volume 94.4 fL (83.0-100.0); Mean Platelet Volume 8.8 fL (9.4-12.4); Monocytes # 0.4 K/mcL (0.0-1.3); Monocytes % 8.7 %; Neutrophils # 2.7 K/mcL (1.6-8.9); Platelet Count 213 K/mcL (140-400); Red Blood Count 3.24 M/mcL (4.19-5.50); Red Cell Distribution Width 14.6 % (11.5-14.5); Segmented Neutrophils % 59.3 %; White Blood Count 4.5 K/mcL (4.3-11.1)
[2022-06-13 04:51] LABS: INR 1.1; Prothrombin Time 12.2 Seconds (9.4-12.1)
[2022-06-13 05:00] LABS: Estimated Average Glucose 151 mg/dl; Hemoglobin A1C 6.9 %
[2022-06-13 05:00] LABS: C-Reactive Protein 7 mg/L (Less than 10); Troponin I < 0.03 ng/mL (< 0.04)
[2022-06-13 05:05] LABS: Calcium 8.9 mg/dL (8.6-10.3); Chol/HDL Ratio 3.8 (0-4.9); Magnesium 1.8 mg/dL (1.6-2.6); Phosphorous 3.3 mg/dL (2.7-4.5); Potassium 5.7 mEq/L (3.5-5.1)
[2022-06-13] MEDS ORDERED: Albuterol 2.5 MG/3 ML NEBULIZER IH ONE (05:07)
[2022-06-13] MEDS ORDERED: Magnesium Sulfate 1 GM/102 ML PIGGYBACK IVPB ONE (05:08)
[2022-06-13] MEDS ORDERED: Insulin Human Regular 10 UNIT in 0.9 % Sodium Chloride 10 ML IV ONE ×2 (05:08→15:09)
[2022-06-13] MEDS ORDERED: SODIUM ZIRCONIUM CYCLOSILICATE 5 GM POWD.PACK PO ONE (05:11)
[2022-06-13] MEDS ORDERED: Furosemide 20 MG/2 ML VIAL IVP ONE (05:15)
[2022-06-13 05:20] LABS: Thyroid Stimulating Hormone 2.748 mcIU/mL (0.340-5.600)
[2022-06-13] MEDS: *HR* Dextrose 50 % in Water (Syg) 50 ML SYRINGE IVP PRN (06:04)
[2022-06-13] MEDS ORDERED: Famotidine 20 MG TABLET PO SCH (07:30)
[2022-06-13] MEDS: Gabapentin 300 MG CAPSULE PO SCH ×3 (09:15→20:56)
[2022-06-13] MEDS: Magnesium Oxide 400 MG TABLET PO SCH (09:15)
[2022-06-13] MEDS: Isosorbide MONOnitrate (24 HR) 60 MG TAB.ER.24H PO SCH (09:15)
[2022-06-13] MEDS: Pyridoxine (B-6) 50 MG TABLET PO SCH (09:15)
[2022-06-13] MEDS: Metoprolol XL (24 HR) Succ 25 MG TAB.ER.24H PO SCH (09:15)
[2022-06-13] MEDS: Finasteride 5 MG TABLET PO SCH (09:16)
[2022-06-13] MEDS: Fluticasone Propionate Nasal 50 MCG/SPRAY BOTTLE NS SCH (09:17)
[2022-06-13] MEDS: Insulin LISPRO 300 UNITS/3 ML VIAL SUBQ SCH ×3 (09:18→16:36)
[2022-06-13] MEDS: Triamcinolone Acet 0.1% CRM 15 GM TUBE TP SCH ×2 (09:19→21:02)
[2022-06-13] MEDS: 0.9 % Sodium Chloride 1,000 ML IVC SCH ×2 (09:19→11:41)
[2022-06-13] MEDS: Ketoconazole 2% CRM 15 GM TUBE TP SCH ×2 (09:20→21:02)
[2022-06-13] MEDS: OLOPATADINE HCL OP SCH ×2 (09:20→21:02)
[2022-06-13] MEDS: SODIUM ZIRCONIUM CYCLOSILICATE 5 GM POWD.PACK PO SCH ×3 (09:20→20:57)
[2022-06-13 12:21] LABS: Calcium 9.2 mg/dL (8.6-10.3); Potassium 5.4 mEq/L (3.5-5.1)
[2022-06-13] MEDS ORDERED: *HR* Dextrose 50 % in Water (Vial) 50 ML VIAL IVP ONE (15:09)
[2022-06-13] MEDS: Acetaminophen 325 MG TABLET PO PRN (15:13)
[2022-06-13] MEDS: *HR* Heparin 5,000 UNIT/ML VIAL SQ SCH (16:36)
[2022-06-14 05:52] LABS: Basophils % 0.5 %; Eosinophils # 0.2 K/mcL (0.0-0.6); Eosinophils % 4.9 %; Hematocrit 30.7 % (37.5-50.1); Hemoglobin 9.4 g/dL (12.9-16.9); Immature Granulocytes % 0.5 % (0-4); Lymphocytes # 1.6 K/mcL (0.6-4.6); Lymphocytes % 36.8 %; Mean Corpuscular HGB Conc 30.6 g/dL (31.6-35.5); Mean Corpuscular Hemoglobin 28.1 pg (28.0-33.3); Mean Corpuscular Volume 91.6 fL (83.0-100.0); Mean Platelet Volume 8.8 fL (9.4-12.4); Monocytes # 0.5 K/mcL (0.0-1.3); Monocytes % 11.2 %; Platelet Count 183 K/mcL (140-400); Red Blood Count 3.35 M/mcL (4.19-5.50); Red Cell Distribution Width 14.5 % (11.5-14.5); Segmented Neutrophils % 46.1 %; White Blood Count 4.3 K/mcL (4.3-11.1)
[2022-06-14 06:30] LABS: BUN/Creatinine Ratio 13 (6-26); Blood Urea Nitrogen 14 mg/dL (8-23); Calcium 8.4 mg/dL (8.6-10.3); Carbon Dioxide 23 mEq/L (23-29); Chloride 111 mEq/L (98-107); Glucose 131 mg/dL (70-105); Magnesium 1.6 mg/dL (1.6-2.6); Osmolality,Calculated 290 (280-300); Phosphorous 2.7 mg/dL (2.7-4.5); Potassium 6.1 mEq/L (3.5-5.1); Sodium 139 mEq/L (136-145); eGFR For African Americans > 60 (> 60); eGFR For Non-African Americans > 60 (> 60)
[2022-06-14] MEDS: *HR* Heparin 5,000 UNIT/ML VIAL SQ SCH (06:45)
[2022-06-14] MEDS ORDERED: Famotidine 20 MG TABLET PO SCH (07:30)
[2022-06-14] MEDS ORDERED: Insulin Human Regular 10 UNIT in 0.9 % Sodium Chloride 10 ML IV ONE (09:38)
[2022-06-14] MEDS ORDERED: *HR* Dextrose 50 % in Water (Vial) 50 ML VIAL IVP ONE (09:38)
[2022-06-14] MEDS: Insulin LISPRO 300 UNITS/3 ML VIAL SUBQ SCH ×2 (10:24→12:34)
[2022-06-14] MEDS: Pyridoxine (B-6) 50 MG TABLET PO SCH (10:39)
[2022-06-14] MEDS: Gabapentin 300 MG CAPSULE PO SCH ×2 (10:40→15:23)
[2022-06-14] MEDS: Finasteride 5 MG TABLET PO SCH (10:40)
[2022-06-14] MEDS: Metoprolol XL (24 HR) Succ 25 MG TAB.ER.24H PO SCH (10:40)
[2022-06-14] MEDS: Magnesium Oxide 400 MG TABLET PO SCH (10:40)
[2022-06-14] MEDS: Triamcinolone Acet 0.1% CRM 15 GM TUBE TP SCH (10:41)
[2022-06-14] MEDS: Fluticasone Propionate Nasal 50 MCG/SPRAY BOTTLE NS SCH (10:41)
[2022-06-14] MEDS: *HR* Dextrose 50 % in Water (Syg) 50 ML SYRINGE IVP PRN (10:42)
[2022-06-14] MEDS: OLOPATADINE HCL OP SCH (10:42)
[2022-06-14] MEDS: Ketoconazole 2% CRM 15 GM TUBE TP SCH (10:42)
[2022-06-14] MEDS: Isosorbide MONOnitrate (24 HR) 60 MG TAB.ER.24H PO SCH (10:46)
[2022-06-14] MEDS: SODIUM ZIRCONIUM CYCLOSILICATE 5 GM POWD.PACK PO SCH ×2 (10:47→15:23)
[2022-06-14 12:12] VITALS: PULSE 88
[2022-06-14 17:02] VITALS: BP 125/64; TEMP 97.6; O2SAT 92
[2022-06-16] MEDS ORDERED: Dulaglutide [Trulicity] 0.75 MG/0.5 ML SUBQ SCH (09:00)
== END 2022-06-14 17:04 | disposition home or self-care (01) ==
LOC: 3BNU 17:47 → EMEROOARM 17:47 → 3NENU 21:21
PROVIDERS: ADMIT Internal Medicine; ATTEND Internal Medicine